=== PATIENT | female | born 1985 | race African-American/Black ===

== ENCOUNTER 2020-11-16 16:20 | Emergency (ER) | payer OTHER ==
[~2020-11-16] VITALS: Ht 170.2 cm; Wt 59.0 kg
--- NOTE | 2020-11-16 16:52 | NUR ---
Urine sample collected and brought to laboratory
[2020-11-16 16:57] LABS: *BILIRUBIN,URIN NEGATIVE (NEGATIVE); *BLOOD, URINE 1+ (NEGATIVE); *COLOR,URINE YELLOW (YELLOW); *KETONES,URINE NEGATIVE (NEGATIVE); *UROBILINOGEN,URINE 0.2 E.U./dl (NORMAL); LEUKOCYTE ESTERASE ,URINE NEGATIVE (NEGATIVE); NITRITE, URINE NEGATIVE (NEGATIVE); PH,URINE 5.5 (5.0-8.0); UGLUCOSE NEGATIVE (NEGATIVE)
[2020-11-16 16:58] LABS: *URINE HCG, QUAL NEGATIVE (NEGATIVE)
[2020-11-16 17:04] LABS: *CLARITY,URINE SLIGHTLY HAZY (CLEAR); BACTERIA,URINE FEW /HPF (NONE SEEN); SQUAMOUS EPITHELIAL CELL,UR MODERATE /HPF (NONE SEEN); WBC,URINE 0-3 /HPF (0-3)
--- NOTE | 2020-11-16 17:05 | NUR ---
MD at bedside examining patient at this time
[2020-11-16 17:19] VITALS: BP 156/87
--- NOTE | 2020-11-16 17:19 | NUR ---
Patient discharged to home in stable condition. Written and verbal after care instructions given. Patient verbalizes understanding of instructions. Stressed follow up or return to ER for worsening s/s.
== END 2020-11-16 17:16 | disposition home or self-care (01) ==
LOC: ER 16:24
DX: R10.32 Left lower quadrant pain (principal); K59.00 Constipation, unspecified; F41.9 Anxiety disorder, unspecified
CPT/HCPCS: 84703; A4663

== ENCOUNTER 2023-07-03 15:48 | Emergency (ER) | payer OTHER ==
[~2023-07-03] VITALS: Ht 160 cm; Wt 56.7 kg
[2023-07-03] MEDS ORDERED: LIDOCAINE 1%-EPI 1:100,000 20 ML VIAL ONE (16:11)
[2023-07-03] MEDS: LIDOCAINE 1%-EPI 1:100,000 20 ML VIAL IJ ONE (16:28)
[2023-07-03] MEDS: TDAP DIPH,PERTUSS,TET VAC/PF 0.5 ML DISP.SYRIN IM ONE (16:38)
[2023-07-03 17:14] VITALS: BP 131/93; O2SAT 100
== END 2023-07-03 17:15 | disposition home or self-care (01) ==
LOC: ER 15:50
DX: S81.811A Laceration without foreign body, right lower leg, initial encounter (principal); F41.9 Anxiety disorder, unspecified; W26.0XXA Contact with knife, initial encounter; Y93.89 Activity, other specified; Y92.89 Other specified places as the place of occurrence of the external cause; Y99.8 Other external cause status
CPT/HCPCS: 12002; 90471; 90715; 99283; J3490; A4606; A4663

== ENCOUNTER 2023-07-10 19:25 | Emergency (ER) | payer OTHER | END 2023-07-10 20:45 | disposition left against medical advice (07) | LOC: ER 19:26 | DX: R52 Pain, unspecified (principal); Z53.21 Procedure and treatment not carried out due to patient leaving prior to being seen by health care provider ==